=== PATIENT | male | born 2000 | race Caucasian/White ===

== ENCOUNTER 2023-11-29 08:55 | Emergency (ER) | payer SELFPAY ==
[2023-11-29 08:56] VITALS: BP 117/72; PULSE 84; RESP 18; TEMP 36.8; O2SAT 99; BMI 27.9
--- NOTE | 2023-11-29 09:08 | W.ED.ABDPA2 ---
HPI - Abdominal Pain General: Chief Complaint: Abdominal Pain Stated Complaint: abd pain Time Seen by Provider: 11/29/23 09:08 Source: patient Limitations: no limitations History of Present Illness: 23-year-old male here with upper abdominal pain. Right upper quadrant. Pain all the time last couple days, worsens with touch or movement. Currently 9/10. Not taking any pain or other medicaitons medications. No nausea or vomiting. Some constipation. Last 2 days small caliber stool. Prior to that been several days since bowel movement. Had appendectomy last November at [facility]. Some upper abdominal pain since then. Comes and goes for periods of days. May be months in between episodes. Last episode in July. Treated woth PPI and carafate. Got better but unsure if from medications or natural course of problem. Recently had body cramps and headaches leading to visit to [facility], diagnosed with viral illness. May have had fever at the ED visit. They performed a CT scan that did not show abnormalities reported to him. WBC was normal. MD elicited complaint: abdominal pain Onset (ago): day(s) Pain Consistency: constant Location: RUQ Severity: severe Pain scale (0-10): 9 Quality: cramping and aching Radiation: none Migration to: no migration Exacerbating factors: movement Relieving factors: nothing Context: history of similar episodes (over past year) Associated Symptoms: Reports constipation and fever(s) (maybe 2 days ago); Denies nausea and vomiting Review of Systems Const: Reports: fever(s) (maybe 2 days ago) GI: Reports: abdominal pain and constipation; Denies: nausea or vomiting [facility] ED PFSH: Medical History (Updated 11/29/23 @ 11:51 by Monty Mina DO) Seasonal allergies Surgical History (Updated 11/29/23 @ 09:15 by Monty Mina DO) History of appendectomy Family History (Updated 11/29/23 @ 09:16 by Monty Mina DO) Mother Diabetes Grandmother Breast cancer Social History (Updated 11/29/23 @ 09:17 by Monty Mina DO) Smoking and tobacco/nicotine status: current every day tobacco/nicotine user e-cigarettes E-Cigarette Details: vaporizer device and with nicotine Alcohol intake: never Substance/Drug Use: never Household members: significant other and children Number of children: 1 Physical Exam Const: GENERAL APPEARANCE: cooperative and comfortable ORIENTATION/CONSCIOUSNESS: Yes awake, Yes oriented to person, Yes oriented to place and Yes oriented to time HENMT: COMMON NORMALS: normocephalic, atraumatic and hearing grossly normal bilaterally HEAD & SCALP: normocephalic and atraumatic Resp: COMMON NORMALS: normal respiratory effort, No retractions, No use of accessory muscles and clear to auscultation bilaterally AUSCULTATION: clear to auscultation bilaterally Cardio: COMMON NORMALS: regular rate, regular rhythm and No murmurs present (Cardio) RATE: regular rate RHYTHM: regular rhythm GI: COMMON NORMALS: No hepatosplenomegaly present AUSCULTATION: Yes normoactive bowel sounds PALPATION: Yes Tenderness to palpation present (GI) Details: RUQ, No Guarding due to palpation present (GI) and Yes No hepatosplenomegaly present Extremity: COMMON NORMALS: normal to inspection, capillary refill normal, no clubbing, cyanosis or edema, no calf tenderness and no pedal edema Neuro: SENSORIUM/ORIENTATION: Yes oriented to person, Yes oriented to place and Yes oriented to time Skin: COMMON NORMALS: no rashes or lesions noted GENERAL SKIN EXAM: no rashes or lesions noted Course Vital Signs: Vital signs: Vital Signs Temperature 98.2 F 11/29/23 08:56 Pulse Rate 89 11/29/23 11:32 Respiratory Rate 18 11/29/23 08:56 Blood Pressure 122/86 11/29/23 11:32 Pulse Oximetry 98 11/29/23 11:32 Oxygen Delivery Me thod Room Air 11/29/23 11:32 MDM - Abdominal Pain Medical Decision Making CT of the abdomen shows inflammation of the right colon and portion of transverse colon. I believe this is more likely to be inflammatory patient's not had any bloody bowel movements not had any diarrhea. No fever sweats or chills his white count Is normal. Will put him on a course of steroids. Promethazine and hydrocodone to use as needed encouraged him to follow-up with his primary care doctor usually sees someone in [place] he would likely need to see gastroenterology. Medical Records I reviewed the patient's medical records. Lab Data I reviewed the patient's lab results. 11/29/23 09:40 11/29/23 09:40 Labs/Radiology: Radiology Impressions Abdomen/Pelvis CT 11/29/23 09:23 IMPRESSION: 1. Suspected infectious or inflammatory colitis involving the cecum, RIGHT colon, hepatic flexure extending to the proximal transverse colon. Mild thickening and enhancement involving the distal sigmoid and rectosigmoid. Recommend correlation for history of inflammatory bowel disease 2. Small amount of free fluid in the pelvis. 3. Prior appendectomy. 4. Mild splenomegaly. 5. No other suspicious findings. Gallbladder Ultrasound 11/29/23 09:29 IMPRESSION: Normal right upper quadrant ultrasound. Laboratory Results WBC 5.94 10^3/uL (3.29-11.43) 11/29/23 09:40 RBC 4.79 10^6/uL (3.85-5.65) 11/29/23 09:40 Hgb 14.00 g/dL (11.27-16.99) 11/29/23 09:40 Hct 40.1 % (37-53) 11/29/23 09:40 MCV 83.7 fl (82-101) 11/29/23 09:40 MCH 29.2 pg (27-33) 11/29/23 09:40 MCHC 34.9 g/dL (30-55) 11/29/23 09:40 RDW 12.3 % (12.1-15.1) 11/29/23 09:40 Plt Count 230 10^3/cmm (157-399) 11/29/23 09:40 MPV 10.8 fL (7.4-10.4) H 11/29/23 09:40 Neut % (Auto) 66.5 % 11/29/23 09:40 Lymph % (Auto) 21.9 % 11/29/23 09:40 [place] % (Auto) 7.2 % 11/29/23 09:40 Eos % (Auto) 3.5 % 11/29/23 09:40 Baso % (Auto) 0.7 % 11/29/23 09:40 Neut # (Auto) 3.95 10^3/uL (1.8-7.7) 11/29/23 09:40 Lymph # (Auto) 1.3 10^3/uL (0.8-4.8) 11/29/23 09:40 [place] # (Auto) 0.4 10^3/uL (0.2-0.9) 11/29/23 09:40 Eos # (Auto) 0.2 10^3/uL (0.0-0.8) 11/29/23 09:40 Baso # (Auto) 0.0 10^3/uL (0.0-0.1) 11/29/23 09:40 Nucleated RBC % (auto) 0 % 11/29/23 09:40 Nucleated RBCs # 0.0 /100WBC 11/29/23 09:40 ESR 1 mm/hr (0-10) 11/29/23 09:40 Sodium 137 mmol/L (136-145) 11/29/23 09:40 Potassium 4.1 mmol/L (3.5-5.1) 11/29/23 09:40 Chloride 99 mmol/L (98-107) 11/29/23 09:40 Carbon Dioxide 27 mmol/L (22-29) 11/29/23 09:40 Anion Gap 15.1 (5-19) 11/29/23 09:40 BUN 10 mg/dL (6-20) 11/29/23 09:40 Creatinine 0.7 mg/dL (0.7-1.2) 11/29/23 09:40 GFR Calculation 139.8 mL/min (90-130) H 11/29/23 09:40 Glucose 99 mg/dL (65-115) 11/29/23 09:40 Calculated Osmolality 283 mOsm/kg (285-295) L 11/29/23 09:40 Calcium 9.0 mg/dL (8.5-10.5) 11/29/23 09:40 Total Bilirubin 0.8 mg/dL (0.15-1.2) 11/29/23 09:40 AST 26 U/L (0-40) 11/29/23 09:40 ALT 17 U/L (0-41) 11/29/23 09:40 Alkaline Phosphatase 63 U/L (40-130) 11/29/23 09:40 Total Protein 7.2 g/dL (6.6-8.7) 11/29/23 09:40 Albumin 4.1 g/dL (3.5-5.2) 11/29/23 09:40 Globulin 3.1 g/dL (1.3-4.6) 11/29/23 09:40 Lipase 16 U/L (13-60) 11/29/23 09:40 Urine Color Yellow (Yellow) 11/29/23 09:08 Urine Appearance Clear (CLEAR) 11/29/23 09:08 Urine pH 5 (5-7) 11/29/23 09:08 Ur Specific [place] 1.010 (1.005-1.030) 11/29/23 09:08 Urine Protein Neg (Negative) 11/29/23 09:08 Urine Glucose (UA) Norm (Normal) 11/29/23 09:08 Urine Ketones 1+ (Negative) H 11/29/23 09:08 Urine Blood Neg (Negative) 11/29/23 09:08 Urine Nitrate Negative (Negative) 11/29/23 09:08 Urine Bilirubin Neg (Negative) 11/29/23 09:08 Urine Urobilinogen 1 mg/dL (Negative) H 11/29/23 09:08 Ur Leukocyte Esterase Negative (Negative) 11/29/23 09:08 All radiology interpretation(s) finalized by discharge Discharge Plan Discharge Patient Disposition: Home Clinical Impression: Colitis Condition: Stable Prescriptions: New hydrocodone-acetaminophen 5-325 mg tablet 1 tab PO Q6H PRN (Reason: pain) Qty: 10 0RF prednisone 20 mg tablet 20 mg PO TID Qty: 15 0RF Rx Instructions: 1 p.o. 3 times daily x3 days, 1 p.o. twice daily x2 days, 1 p.o. daily x2 days promethazine 25 mg tablet 25 mg PO Q6H PRN (Reason: nausea and vomiting) Qty: 20 0RF Discharge Orders: Discharge ED (Routine); Ordered 11/29/23 Ordered By: Monty Mina Discharge Diet: Clear Liquid Discharge Activity: Increase activity as tolerated Patient Instructions: Opioid Safety, Pain Management Activity Restrictions/Additional Instructions: Thank you for choosing [facility] for your healthcare needs today. It is very important that you follow up as instructed or that you return to the Emergency Department should you have concerns or if your condition changes or worsens in any way. You were seen today for complaints of abdominal pain CT showed some inflammation of the right side of your colon and portion of the transverse colon. Your white count is not elevated urine was normal gallbladder ultrasound did not show signs of an acute gallbladder attack. Your white count liver functions were normal. Will discharge you home on a course of oral steroids promethazine for nausea and vomiting and hydrocodone as needed for pain. Recommend that you follow-up with your primary care doctor to seek out referral to GI to further evaluate the CT findings. Your symptoms worsen or change return to the emergency room Coding Level of Care Code ED Chief Crna for Nomi Pearson
--- NOTE | 2023-11-29 09:23 | ECG_ITS ---
[facility] Test Date: 2023-11-29 Pat Name: Emilio Acevedo Department: Room: Gender: Male [employer] Supervisor: : [id number] Requested By: Monty Lam Order Number: [id number] Armida MD: Deja Calderón M.D. Measurements Intervals [place] Rate: 57 P: 8 [place]: 133 QRS: 60 QRSD: 114 T: 58 QT: 388 QTc: 380 Interpretive Statements SINUS BRADYCARDIA WITH MARKED SINUS ARRHYTHMIA POSSIBLE RIGHT VENTRICULAR CONDUCTION DELAY [RSR (QR) IN V1/V2] No previous ECG available for comparison Electronically Signed On 11-29-2023 22:00:14 CDT by Deja Calderón M.D. [id number]
--- NOTE | 2023-11-29 09:23 | CT_ITS ---
WS: [id number] CT ABDOMEN PELVIS TECHNIQUE: Contrast-enhanced CT of the abdomen and pelvis with coronal and sagittal reformatted image s. CLINICAL INFORMATION: abd pain COMPARISON: None. DLP: 673.[address] scans at [facility] use at least one of these dose optimization techniques: automated e xposure control; mA and/or kV adjustment per patient size (includes targeted exams where dose is matc hed to clinical indication); or iterative reconstruction. FINDINGS: Normal liver. Mild splenomegaly measuring 13 cm [id number]. Normal GE junction. Lung bases are well aerated. Normal pancreas. Normal portal vein and splenic vein. Tiny splenule. Pancreas appears jet l. Adrenal glands are normal. No hydronephrosis in either kidney. Normal renal parenchymal enhancemen t. No hydronephrosis. No obstructing renal or ureteral calculi. Evidence of prior appendectomy. Small amount of free fluid in the pelvis. Mild thickening with submucosal enhancement involving the c ecum and ascending colon and hepatic flexure extending into the proximal transverse colon suspicious for infectious or inflammatory colitis. Splenic flexure and descending colon has a more normal appear ance. Urine distended bladder. Normal caliber abdominal aorta. Tiny fat-containing umbilical hernia. Mild thickening of the distal sigmoid and rectosigmoid. Recommend correlation for inflammatory bowel disease. CT/CT abdomen pelvis w con* [id number] IMPRESSION: 1. Suspected infectious or inflammatory colitis involving the cecum, RIGHT col on, hepatic flexure extending to the proximal transverse colon. Mild thickening and enhancement involving the distal sigmoid and rectosigmoid. Recommend corre lation for history of inflammatory bowel disease 2. Small amount of free fluid in the pelvis. 3. Prior appendectomy. 4. Mild splenomegaly. 5. No other suspicious findings.
--- NOTE | 2023-11-29 09:29 | US_ITS ---
WS: [id number] RIGHT UPPER QUADRANT ULTRASOUND HISTORY: Right upper quadrant abdominal pain COMPARISON: None available. Liver: 15.2 cm in length. Normal size liver and echogenicity. No bile duct dilatation or mass. Portal Vein: Normal hepatopetal flow with monophasic waveform. Gallbladder: Normally distended gallbladder with no stones or wall thickening. CBD: 0.5 cm Pancreas: Normal size and echogenicity. Right kidney: 11.6 cm in length. Normal size and echogenicity. No hydronephrosis or mass. Aorta and IVC: Unremarkable abdominal aorta and IVC. No ascites. US/US gall bladder [id number] IMPRESSION: Normal right upper quadrant ultrasound.
[2023-11-29 09:53] LABS: Basophils % 0.7 %; Eosinophils # 0.2 10^3/uL (0.0-0.8); Eosinophils % 3.5 %; Hematocrit 40.1 % (37-53); Lymphocytes # 1.3 10^3/uL (0.8-4.8); Lymphocytes % 21.9 %; Mean Corpuscular HGB Conc 34.9 g/dL (30-55); Mean Corpuscular Hemoglobin 29.2 pg (27-33); Mean Corpuscular Volume 83.7 fl (82-101); Mean Platelet Volume 10.8 fL (7.4-10.4); Monocytes # 0.4 10^3/uL (0.2-0.9); Monocytes % 7.2 %; Neutrophils # 3.95 10^3/uL (1.8-7.7); Neutrophils % 66.5 %; Nucleated Red Blood Cells % 0 %; Platelet Count 230 10^3/cmm (157-399); Red Blood Count 4.79 10^6/uL (3.85-5.65); Red Cell Distribution Width 12.3 % (12.1-15.1); White Blood Count 5.94 10^3/uL (3.29-11.43)
[2023-11-29 10:01] LABS: Erythrocyte Sedimentation Rate 1 mm/hr (0-10)
[2023-11-29 10:05] LABS: Alanine Aminotransferase 17 U/L (0-41); Albumin Level 4.1 g/dL (3.5-5.2); Alkaline Phosphatase 63 U/L (40-130); Anion Gap 15.1 (5-19); Aspartate Amino Transferase 26 U/L (0-40); Blood Urea Nitrogen 10 mg/dL (6-20); Carbon Dioxide 27 mmol/L (22-29); Chloride 99 mmol/L (98-107); Creatinine Clr Calc Pharmacy 200.5826; Globulin 3.1 g/dL (1.3-4.6); Glomerular Filtration Rate 139.8 mL/min (90-130); Glucose 99 mg/dL (65-115); Lipase 16 U/L (13-60); Osmolality Calculated 283 mOsm/kg (285-295); Potassium 4.1 mmol/L (3.5-5.1); Sodium 137 mmol/L (136-145); Total Bilirubin 0.8 mg/dL (0.15-1.2); Total Protein 7.2 g/dL (6.6-8.7)
[2023-11-29] MEDS: iohexol 350 mg/mL 500 mL Btl (per mL) IV (10:12)
[2023-11-29] MEDS: sodium chloride 0.9% 1,000 ML 999 ML IV ×2 (10:48→11:09)
[2023-11-29] MEDS: ondansetron 2 mg/ML SDV 2 mL 4 MG IVP (10:48)
[2023-11-29 10:57] LABS: Add Urine Microscopic? NO; Charge for UA Resulting for Rev
[2023-11-29 11:03] LABS: Bilirubin Urine Neg (Negative); Blood Urine Neg (Negative); Glucose Urine UA Norm (Normal); Ketones Urine 1+ (Negative); Leukocyte Esterase Urine Negative (Negative); Nitrate Urine Negative (Negative); Protein Urine Neg (Negative); Urine Appearance Clear (CLEAR); Urine Color Yellow (Yellow); Urobilinogen Urine 1 mg/dL (Negative); pH Urine 5 (5-7)
[2023-11-29 11:32] VITALS: BP 122/86; PULSE 89; O2SAT 98
== END 2023-11-29 12:18 | disposition home or self-care (01) ==
PROVIDERS: Emergency Provider Family Medicine
DX: K52.9 Noninfective gastroenteritis and colitis, unspecified (principal); F17.290 Nicotine dependence, other tobacco product, uncomplicated
CPT/HCPCS: 74177; 76705; 80053; 81003; 83690; 85025; 85651; 93005; 96374; 99285; J2405; J7030; Q9967